=== PATIENT | male | born 1955 | race Caucasian/White ===

== ENCOUNTER 2017-02-27 01:00 | Inpatient (IN) | payer OTHER ==
[~2017-02-27] VITALS: Ht 182.9 cm; Wt 89.8 kg
--- NOTE | ~2017-02-27 | HP ---
Unit #: [id number] #: [id number] Patient: KIMBERLI BLANCO [id number] [place] [address] [id number] I MR#: [id number] NAME: KIMBERLI BLANCO ROOM: P171 Age: 61 Sex: M Admission Date: 02/27/2017 : 1955 Attending Physician: Garry Mercado M.D. Admitting Physician: Garry Mercado M.D. Primary Care Physician: Generic Doctor Not In System HISTORY AND PHYSICAL HISTORY OF PRESENT ILLNESS Kimberli is a 61 year old admitted to [facility] with depression and verbalizing wanting to hurt himself. PAST MEDICAL HISTORY 1. History of atrial fibrillation. 2. High blood pressure. 3. History of alcohol abuse. 4. History of withdrawal seizures. 5. Coronary artery disease. a. History of PR. 6. History of TIA. 7. Osteoarthritis. 8. Psoriasis. 9. BPH. PAST SURGICAL HISTORY Fractured right leg with ORIF. ALLERGIES Metoprolol (swelling). SOCIAL HISTORY He does not smoke. Drinks a case of beer on a daily basis. Admits to using marijuana on occasion. FAMILY HISTORY Medically noncontributory. REVIEW OF SYSTEMS CONSTITUTIONAL: No fever or chills. HEENT: Denies any sore throat, ear pain or runny nose. CARDIOVASCULAR: Denies chest pain, irregular heart rhythm or palpitations. CHEST: Denies shortness of breath or cough. No hemoptysis. GASTROINTESTINAL: Denies nausea, vomiting, diarrhea or chronic constipation. ENDOCRINE: Denies history of increased thirst or urination. No recent significant weight loss or gain. GENITOURINARY: Denies dysuria, frequency, or hematuria. SKIN: Denies any rashes. HEMATOLOGIC: Denies history of increased bleeding or bruising. MUSCULOSKELETAL: Denies any hot, swollen joints. No generalized muscle pain. Unit #: [id number] #: [id number] Patient: KIMBERLI BLANCO NEUROLOGIC: Denies problems with vision or speech. No frequent, severe headaches. No numbness, tingling or weakness in any extremities. Denies loss of bladder or bowel control. CURRENT MEDICATIONS 1. Detox protocol. 2. Flomax 0.4 mg q. day. 3. Paxil 20 mg q. day. 4. Xarelto 20 mg q.h.s. 5. Mag Ox 400 mg b.i.d. 6. Zestril 20 mg q. day. 7. Mobic 15 mg q. day. PHYSICAL EXAMINATION GENERAL: Alert, well nourished. No apparent distress. VITAL SIGNS: Blood pressure 124/80, heart rate 88, respirations 16, and temperature 98.6. WEIGHT: 198. HEIGHT: 6 feet 0 inches. SKIN: Warm and dry without rash or lesion. HEENT: Normocephalic. TMs not viewed. Oral and nasal passages clear. Conjunctivae clear. PERRLA. EOMs intact. NECK: Supple without lymphadenopathy or thyromegaly. HEART: Regular rate and rhythm without murmur. LUNGS: Clear. ABDOMEN: Soft, nontender. : Not done. EXTREMITIES: No evidence of cyanosis or clubbing. Trace edema noted bilateral lower extremities. Moves all without focal deficit. NEUROLOGICAL: Grossly within normal limits. Cranial Nerves: II: Visual glez are intact. III, IV AND : Extraocular movements are intact. Pupils are equal, round and reactive to light. V: Facial sensation is grossly normal. VII: Facial movements and expression are normal. VIII: Auditory acuity grossly intact. IX, X: Uvula is midline. Phonation is normal. XI: Patient shrugs shoulders and turns head normally. XII: Tongue protrudes in the midline. Sensory and Motor Function: Sensory and motor sensation is grossly normal. Motor: moves all extremities well. Coordination: Gait is normal. Deep Tendon Reflexes: Intact. IMPRESSION Psychiatric admission. RECOMMENDATIONS PSYCHIATRIC: Per psychiatrist. MEDICAL: 1. I see no contraindication to participate in this facility's activities. 2. Detox per protocol. 3. Continue Flomax and Xarelto, Mag Ox, Zestril, and Mobic. MEDICAL PROGNOSIS Good. MEDICAL CONDITION Stable. Unit #: [id number] #: [id number] Patient: KIMBERLI BLANCO Dictated by... Leanna Lipscomb P.A.-C. for Jan Thurman/eddie TD: 02/28/2017 12:13 JOB #: [id number] HISTORY AND PHYSICAL Page 1 of 1 X Leanna Lipscomb HISTORY AND PHYSICAL
--- NOTE | ~2017-02-27 | PN ---
Unit #: [id number] #: [id number] Patient: KIMBERLI BLANCO [id number] [facility] [address] [place] [address] [id number] I MR#: [id number] NAME: KIMBERLI BLANCO ROOM: P171 Age: 61 Sex: M Admission Date: 02/27/2017 : 1955 Attending Physician: Garry Mercado M.D. Admitting Physician: Garry Mercado M.D. Primary Care Physician: Generic Doctor Not In System [facility] PROGRESS NOTES DATE 03/04/2017 DISCUSSION Mr. Blanco is a 61-year-old white male who was seen today and chart was reviewed and case was discussed with the staff. He has been anxious, withdrawn and rather seclusive to himself though has been cooperative with treatment recommendations and has been taking medications and tolerating them fairly well with no reported side effects. MENTAL STATUS EXAMINATION An elderly white male who was casually dressed with fair personal hygiene and appears to be in no acute distress or discomfort. He was awake and alert with impaired attention and concentration. His mood was anxious with congruent affect. His speech is slow and goal-directed. He denies any suicidal or homicidal ideation and also denies any auditory or visual hallucinations. His insight and judgement remains slightly impaired. TREATMENT PLAN 1. Will continue his current medications and treatment protocol and will monitor his response and make further adjustments as needed. 2. Will continue to follow up. Dictated by... Jan Cohen/kenton TD: 03/04/2017 23:01 JOB #: [id number] Unit #: [id number] #: [id number] Patient: KIMBERLI BLANCO PROGRESS NOTES Page 1 of 1 X Garry Mercado MD PROGRESS NOTE
--- NOTE | ~2017-02-27 | PN ---
Unit #: [id number] #: [id number] Patient: KIMBERLI BLANCO [id number] [facility] [address] [place] [address] [id number] I MR#: [id number] NAME: KIMBERLI BLANCO. ROOM: P171 Age: 61 Sex: M Admission Date: 02/27/2017 : 1955 Attending Physician: Garry Mercado M.D. Admitting Physician: Garry Mercado M.D. Primary Care Physician: Kimberlee Doctor Not In System [facility] PROGRESS NOTES DATE 03/01/2017 DISCUSSION Mr. Blanco is a 61-year-old white male with substance abuse and mood disorder who was seen today and chart was reviewed and case was discussed with the staff. He remains anxious, withdrawn, depressed and seclusive to himself and has been pacing the hallways. Meanwhile, he has been taking the medications and tolerating them fairly well with no reported side effects. MENTAL STATUS EXAMINATION An elderly white male who was casually dressed with fair personal hygiene and appears to be in no acute distress or discomfort. He was awake and alert on interaction with intact orientation. His mood was anxious with congruent affect. His speech is slow and restricted in content. He reports having suicidal ideation but denies any homicidal ideation. His insight and judgement remains slightly . TREATMENT PLAN 1. Will continue his current medications and treatment protocol. Will monitor his response to the medications and make further adjustments as needed. 2. Will continue to follow up. Dictated by... Jan Cohen/kenton TD: 03/01/2017 17:49 JOB #: [id number] Unit #: [id number] #: [id number] Patient: KIMBERLI BLANCO PROGRESS NOTES Page 1 of 1 X Garry Mercado MD PROGRESS NOTE
--- NOTE | ~2017-02-27 | CO ---
Unit #: [id number] #: [id number] Patient: KIMBERLI BLANCO [id number] [place] [address] [id number] I MR#: [id number] NAME: KIMBERLI BLANCO ROOM: P171 Age: 61 Sex: M Admission Date: 02/27/2017 : 1955 Attending Physician: Garry Mercado M.D. Primary Care Physician: Generic Doctor Not In System Consultation Date: 02/27/2017 CONSULTATION REPORT JOB NOTE: DICTATOR FOR NOT DICTATED SUBJECTIVE Kimberli is a 61-year-old with poor hygiene of his feet. He has very dry skin with redness and evidence of irritation between his toes. ASSESSMENT Athlete feet. PLAN During his short admission to [facility], he can keep the feet clean with soap and water. He can follow up his primary care physician and/or use [id number] antifungal creams and powders on a regular basis. Dictated by... Leanna Lipscomb P.A.-C. for Jan Thurman/lor TD: 03/01/2017 00:58 JOB #: [id number] CONSULTATION REPORT Page 1 of 1 X Leanna Lipscomb CONSULTATION REPORT
--- NOTE | ~2017-02-27 | PN ---
Unit #: [id number] #: [id number] Patient: KIMBERLI BLANCO [id number] [facility] [address] [place] [address] [id number] I MR#: [id number] NAME: KIMBERLI BLANCO ROOM: P171 Age: 61 Sex: M Admission Date: 02/27/2017 : 1955 Attending Physician: Garry Mercado M.D. Admitting Physician: Garry Mercado M.D. Primary Care Physician: Generic Doctor Not In System [facility] PROGRESS NOTES DATE March 05, 2017 DISCUSSION Mr. Blanco is a 61-year-old white male, who was seen today and chart was reviewed and the case was discussed with the staff. He has been doing fairly well and has been reporting improvement in his depression and anxiety. He has been cooperative with the treatment recommendations and he has been taking the medications and tolerating them fairly well with no reported side effects. MENTAL STATUS EXAMINATION An elderly white male, who was casually dressed with fair personal hygiene and appears to be in no acute distress or discomfort. He was awake and alert on interaction with intact orientation. His mood is anxious with a congruent affect. He denies any suicidal or homicidal ideations. His insight and judgment remain slightly impaired. TREATMENT PLAN 1. We will continue him on his current medications and treatment protocol, and will monitor his response to the medications, and make further adjustments as needed. 2. We will continue to followup. Dictated by... Jan Cohen/lidia TD: 03/06/2017 12:36 JOB #: [id number] Unit #: [id number] #: [id number] Patient: KIMBERLI BLANCO [facility] PROGRESS NOTES Page 1 of 1 X Garry Mercado MD X PROGRESS NOTE
--- NOTE | ~2017-02-27 | DS ---
Unit #: [id number] #: [id number] Patient: [facility]ANCO [id number] [facility] [place] [address] [id number] I MR#: [id number] NAME: KIMBERLI BLANCO ROOM: [facility] Age: 61 Sex: M Admission Date: 02/27/2017 : 1955 Discharge Date: 03/06/2017 Attending Physician: Garry Mercado M.D. Primary Care Physician: Generic Doctor Not In System DISCHARGE SUMMARY IDENTIFYING DATA Mr. Blanco is an 82-year-old white male with substance abuse and mood disorder, who was self-referred . DISCHARGE DIAGNOSES Psychiatric: Major depressive disorder, recent moderate, without psychotic features; opioid dependence, moderate and acute withdrawal; alcohol dependence, moderate and acute withdrawal . HISTORY OF PRESENT ILLNESS Please see initial psychiatric evaluation for details. PAST PSYCHIATRIC HISTORY Please see initial psychiatric evaluation for details. PAST MEDICAL HISTORY Please see initial psychiatric evaluation for details. HOSPITAL COURSE The patient was admitted to the adult chemical dependency unit at [facility] shweta Aviles and was oriented to the hospital environment. Routine p.r.n. medications were initiated and he was started back on his home medications taking medications regularly and was tolerating them fairly well gradually titrated upward with therapeutic response followed by which, it was decided that he will be kept on his current medications and will be discharged home and will continue treatment on an outpatient basis. DISCHARGE CONDITION Stable. PROGNOSIS Fair. Dictated by... Jan Cohen/lor TD: 03/15/2017 13:39 JOB #: [id number] Unit #: [id number] #: [id number] Patient: KIMBERLI BLANCO DISCHARGE SUMMARY Page 1 of 1 X Garry Mercado MD DISCHARGE SUMMARY
--- NOTE | ~2017-02-27 | PN ---
Unit #: [id number] #: [id number] Patient: KIMBERLI BLANCO [id number] [facility] [address] [place] [address] [id number] I MR#: [id number] NAME: KIMBERLI BLANCO. ROOM: P171 Age: 61 Sex: M Admission Date: 02/27/2017 : 1955 Attending Physician: Garry Mercado M.D. Admitting Physician: Garry Mercado M.D. Primary Care Physician: Kimberlee Doctor Not In System [facility] PROGRESS NOTES DATE OF SERVICE 03/02/2017 DISCUSSION Mr. Blanco is a 61-year-old white male who was seen today. Chart was reviewed and case was discussed with the staff. He has been anxious, withdrawn, and rather seclusive to himself. Meanwhile, he has been cooperative with the treatment recommendations and has been taking the medications and tolerating them fairly well with no reported side effects. MENTAL STATUS EXAMINATION An elderly white male who is casually dressed with fair personal hygiene, appears to be in no acute distress or discomfort. The patient was awake and alert on interaction with intact orientation. His mood is anxious with congruent affect. Speech is slow and goal-directed. He denies any suicidal or homicidal ideations and also denies any auditory or visual hallucinations. His insight and judgment remain slightly impaired. TREATMENT PLAN 1. We will continue him on his current medications and treatment protocol. We will monitor his response and make further adjustments as needed. 2. We will continue to follow up. Dictated by... Jan Cohen/eddie TD: 03/02/2017 08:31 JOB #: [id number] Unit #: [id number] #: [id number] [facility] PROGRESS NOTES Page 1 of 1 X Garry Mercado MD PROGRESS NOTE
--- NOTE | ~2017-02-27 | PN ---
Unit #: [id number] #: [id number] Patient: KIMBERLI BLANCO [id number] [facility] [address] [place] [address] [id number] MR#: [id number] NAME: KIMBRELI BLANCO. ROOM: P171 Age: 61 Sex: M Admission Date: 02/27/2017 : 1955 Attending Physician: Garry Mercado M.D. Admitting Physician: Garry Mercado M.D. Primary Care Physician: Kimberlee Doctor Not In System [facility] PROGRESS NOTES DATE OF SERVICE 03/03/2017 DISCUSSION Mr. Blanco is a 61-year-old white male who was seen today. Chart was reviewed and case was discussed with the staff. He has been anxious, withdrawn, and rather seclusive to himself. Meanwhile, he has been cooperative with the treatment recommendations and has been taking the medications and tolerating them fairly well with no reported side effects. MENTAL STATUS EXAMINATION An elderly white male who is casually dressed with fair personal hygiene, appears to be in no acute distress or discomfort. He was awake and alert on interaction with intact orientation. His mood is anxious with congruent affect. Speech is slow and goal-directed. He denies any suicidal or homicidal ideations and also denies any auditory or visual hallucinations. His insight and judgment remain slightly impaired. TREATMENT PLAN 1. We will continue him on his current medications and treatment protocol. We will monitor his response to the medications and make further adjustments as needed. 2. We will continue to follow up. Dictated by... Jan Cohen/eddie TD: 03/03/2017 08:08 JOB #: [id number] Unit #: [id number] #: [id number] Patient: KIMBERLI BLANCO [facility] PROGRESS NOTES Page 1 of 1 X Garry Mercado MD PROGRESS NOTE
--- NOTE | ~2017-02-27 | PA ---
Unit #: [id number] #: [id number] Patient: KIMBERLI BLANCO [id number] [facility] [address] [place] [address] [id number] I MR#: [id number] NAME: KIMBERLI BLANCO ROOM: P171 Age: 61 Sex: M Admission Date: 02/27/2017 : 1955 Date of Assessment: 02/27/2017 Attending Physician: Garry Mercado M.D. Admitting Physician: Garry Mercado M.D. Primary Care Physician: Generic Doctor Not In System PSYCHIATRIC ASSESSMENT IDENTIFYING DATA Mr. Blanco is a 61-year-old white male, who is a resident of [place], [place], and was transferred to us from [facility] Emergency Room in [place], [place]. CHIEF COMPLAINT "Suicidal ideations." HISTORY OF PRESENT ILLNESS Mr. Blanco is a 61-year-old white male, who was brought to the hospital emergency room by police for suicidal ideation, reports many things have "piled up on me." He reports he was just tired and fed up and reports that his was arrested on Monday due to domestic violence, and the patient's was released from half-way, but there is no-contact order in place and the patient received a call from his ybbqpjn-ib-ijg, who told him I would have to leave the home. The patient expressed his frustration because he has been taking care of his [id number]-rm-[id number], who has dementia and is the one who has to leave the home. The patient reports he also recently found out that he has cancer and that his sponsor, William, who has recently of cancer, and the patient reports that he had neighbors called the police and told the police to "just shoot me." Nurse at the emergency room reports the police were called to patient's home and the patient was intoxicated and told the police to shoot him and he was going to shoot at them, and nurses shared that the patient has been depressed and has been having marital problems along with family, recently finding that he has cancer and does endorse significant depression, anxiety, feelings of hopelessness and helplessness, and suicidal ideations and as such, the recommendation for inpatient level of care was made and the patient was transferred. SUBSTANCE ABUSE HISTORY The patient reports history of alcohol abuse, but denies any other substance abuse issues. PAST PSYCHIATRIC HISTORY The patient has had a history of psychiatric treatment. Review of the medical records indicate that currently, he is on Paxil 20 mg a day, but does not appear to be showing a therapeutic response to medications. PAST MEDICAL HISTORY The patient's medical history is significant for hypertension, chronic pain, history of cancer. Unit #: [id number] #: [id number] Patient: KIMBERLI BLANCO ALLERGIES Metoprolol. PERSONAL AND SOCIAL HISTORY A 61-year-old white male, who reports that he has been and and currently lives with his mother and has fairly decent social support system. MENTAL STATUS EXAMINATION An elderly white male, who was casually dressed with fair personal hygiene, appears to be in no acute distress or discomfort. He was awake and alert on interaction with intact orientation to time, place, and person. His mood was anxious and depressed with congruent affect. His speech was slow and restricted in content. His thought processes were disorganized with some looseness of associations and flight of ideas and suicidal ideations. His insight and judgment remain significantly impaired. DIAGNOSTIC IMPRESSION Psychiatric: Major depressive disorder, recurrent, moderate, without psychotic features. Alcohol dependence, moderate and acute withdrawals. Medical: Hypertension, history of cancer. Stressors: Moderate psychosocial stressors. TREATMENT PLAN 1. The patient has presented with history of mood disorder and substance abuse and has been decompensating and will need inpatient hospitalization for detoxification, safety, and stabilization. We will start him back on his home medications and alcohol detox protocol will be initiated as well. 2. Supportive therapy was provided to the patient. 3. Safe, structured, and nourishing environment will be reported. ESTIMATED LENGTH OF STAY 5 to 7 days. ABILITY TO HELP SELF Limited. WILLINGNESS TO HELP SELF The patient appears to be willing to help self. STRENGTHS 1. Communicative. 2. Cooperative. PROBLEMS 1. Chronic dysphoric symptoms. 2. Chronic chemical dependency. 3. Poor social support system. DISCHARGE CRITERIA This will be contingent upon the patient's ability to go through detox without having any significant withdrawal symptoms as well as his ability to stay safe to himself and others, particularly after discharge from the hospital. Dictated by... Unit #: [id number] #: [id number] Patient: BELLA,KIMBERLIJan Bustos/lor TD: 02/28/2017 08:11 JOB #: [id number] PSYCHIATRIC ASSESSMENT Page 1 of 1 X Garry Mercado MD PSYCHIATRIC ASSESSMENT
--- NOTE | ~2017-02-27 | PN ---
Unit #: [id number] #: [id number] Patient: KIMBERLI BLANCO [id number] [facility] [address] [place] [address] [id number] MR#: [id number] NAME: KIMBERLI BLANCO ROOM: P171 Age: 61 Sex: M Admission Date: 02/27/2017 : 1955 Attending Physician: Garry Mercado M.D. Admitting Physician: Garry Mercado M.D. Primary Care Physician: Kimberlee Doctor Not In System [facility] PROGRESS NOTES DATE OF SERVICE: 02/28/2017 SUBJECTIVE Mr. Blanco is a 61-year-old white male with history of substance abuse and mood disorder, who was seen today and chart was reviewed, and case was discussed with the staff. He has been anxious, withdrawn, depressed, and rather seclusive to himself. Meanwhile, he has been cooperative with treatment recommendation and has been taking medications and tolerating them fairly well with no reported side effects. MENTAL STATUS EXAMINATION An elderly white male who was casually dressed with fair personal hygiene, appears to be in no acute distress or discomfort. He was awake and alert on interaction with intact orientation. His mood was anxious with a congruent affect. His speech was slow and goal directed. He reports having suicidal ideation, but denies any homicidal ideation and also denies any auditory or visual hallucinations. His insight and judgment remain slightly impaired. TREATMENT PLAN 1. We will continue on his current medications and treatment protocol. We will monitor his response to the medications and make further adjustments as needed. 2. We will continue to follow up. Dictated by... Jan Cohen/lor TD: 02/28/2017 08:16 JOB #: [id number] Unit #: [id number] #: [id number] Patient: KIMBERLI BLANCO [facility] PROGRESS NOTES Page 1 of 1 X Garry Mercado MD PROGRESS NOTE
[2017-02-28 09:44] LABS: EOSINOPHIL# 0.1 X10e3 (0-0.7); EOSINOPHIL% 1.5 % (0.0-7.0); HEMOGLOBIN 12.9 gm/dL (13.0-16.0); LYMPHOCYTE# 1.2 X10e3 (1.0-3.5); LYMPHOCYTE% 32.2 % (17.0-45.0); MEAN CELL VOLUME 87.3 FL (83-96); MEAN CORPUSCULAR HEMOGLOBIN 29.6 PG (28-34); MEAN PLATELET VOLUME 8.1 FL (6.5-11.5); MONOCYTE# 0.4 X10e3 (0-1.0); MONOCYTE% 10.7 % (3.0-12.0); NEUTROPHIL# 2.1 X10e3 (1.5-7.1); NEUTROPHIL% 54.6 % (40-75); PLATELET COUNT 165 X10e3 (140-420); RED BLOOD COUNT 4.35 X10e (3.90-5.60); RED CELL DISTRIBUTION WIDTH 14.2 % (11.0-15.5); WHITE BLOOD COUNT 3.9 X10e3 (4.0-10.5)
[2017-02-28 09:47] LABS: DIFF IND NO
[2017-02-28 09:54] LABS: ALBUMIN SERUM 4.2 g/dL (3.5-5.0); BILIRUBIN,TOTAL 1.3 mg/dL (0.2-2.0); BUN/CREATININE RATIO 18.75; CALCIUM SERUM 9.2 mg/dL (8.4-10.2); CREATININE SERUM 0.8 mg/dL (0.6-1.4); GLOM FILT RATE Estimated 96.5 mL/min (>60); POTASSIUM 4.5 mmol/L (3.5-5.1); PROTEIN TOTAL SERUM 7.3 g/dL (6.0-8.3)
[2017-03-01 13:00] LABS: AMPHETAMINE NEG (NEG); BARBITURATES NEG (NEG); BENZODIAZEPINES NEG (NEG); COCAINE NEG (NEG); MARIJUANA NEG (NEG); OPIATES NEG (NEG); TRICYCLIC ANTIDEPRESSANTS NEG (NEG); U METHADONE NEG (NEG)
[2017-03-01 14:09] LABS: URINE APPEARANCE CLEAR; URINE BILIRUBIN NEG (NEG); URINE BLOOD NEG (NEG); URINE COLOR YELLOW; URINE GLUCOSE NORM (NORM); URINE KETONE NEG (NEG); URINE LEUKOCYTE ESTERASE NEG (NEG); URINE NITRATE NEG (NEG); URINE PROTEIN NEG (NEG); URINE UROBILINOGEN NORM (NORM)
== END 2017-03-06 14:47 | disposition home or self-care (01) | DRG 885 ==
LOC: P1E 07:14
PROVIDERS: Psychiatry & Neurology Psychiatry
PROC: HZ2ZZZZ Detoxification Services for Substance Abuse Treatment (ICD-10-PCS; principal; 2017-02-27)
DX: F33.1 Major depressive disorder, recurrent, moderate (principal); R45.851 Suicidal ideations; I10 Essential (primary) hypertension; F10.230 Alcohol dependence with withdrawal, uncomplicated; Z85.9 Personal history of malignant neoplasm, unspecified; Z88.8 Allergy status to other drugs, medicaments and biological substances; B35.3 Tinea pedis
CPT/HCPCS: 80053; 80307; 81003; 85025